=== PATIENT | female | born 1995 | race African-American/Black ===

== ENCOUNTER 2023-11-01 15:44 | Emergency (ER) | payer MEDICAID ==
[~2023-11-01] VITALS: Ht 154.9 cm; Wt 54.5 kg
[2023-11-01 16:04] VITALS: O2SAT 100
[2023-11-01] MEDS: IBUPROFEN 600MG TABLET PO ONE (19:44)
[2023-11-01] MEDS: ACETAMINOPHEN 325MG TABLET PO ONE (19:44)
[2023-11-01] MEDS ORDERED: TOPUD MT (20:24)
[2023-11-01] MEDS ORDERED: IBUP-1523 MT (20:24)
[2023-11-01 20:46] VITALS: BP 126/66; PULSE 67; RESP 18; TEMP 98.9
== END 2023-11-01 20:46 | disposition home or self-care (01) ==
LOC: ER 15:44
DX: S80.01XA Contusion of right knee, initial encounter (principal); S13.4XXA Sprain of ligaments of cervical spine, initial encounter; V49.49XA Driver injured in collision with other motor vehicles in traffic accident, initial encounter; Y93.89 Activity, other specified; Y92.89 Other specified places as the place of occurrence of the external cause; Y99.8 Other external cause status
CPT/HCPCS: 81025; 72040; 99283; Z7610

== ENCOUNTER 2025-05-16 05:02 | Emergency (ER) | payer MEDICAID ==
[~2025-05-16] VITALS: Ht 157.5 cm; Wt 60.0 kg
[~2025-05-16 05:02] MED LIST: IBUP-1523 MT; TOPUD MT
[2025-05-16 05:09] VITALS: O2SAT 100
[2025-05-16] MEDS: ACETAMINOPHEN 325MG TABLET PO ONE (05:41)
[2025-05-16] MEDS ORDERED: TOPUD PO (08:14)
[2025-05-16 08:45] VITALS: BP 109/77; PULSE 82; RESP 15; TEMP 36.8; O2SAT 99
== END 2025-05-16 08:45 | disposition home or self-care (01) ==
LOC: ER 05:02
DX: S00.83XA Contusion of other part of head, initial encounter (principal); R51.9 Headache, unspecified; Y04.0XXA Assault by unarmed brawl or fight, initial encounter; Y93.89 Activity, other specified; Y92.89 Other specified places as the place of occurrence of the external cause; Y99.8 Other external cause status
CPT/HCPCS: 70486; 71111; 73120; 73130; 99284